=== PATIENT | male | born 1985 | race Caucasian/White ===

== ENCOUNTER 2020-08-08 11:41 | Emergency (ER) | payer OTHER, SELFPAY ==
[2020-08-08 11:57] VITALS: BP 132/86; PULSE 65; RESP 18; TEMP 36.6; O2SAT 99
--- NOTE | 2020-08-08 12:01 | ED.GENADULT ---
HPI - General Adult General Chief complaint: Wound/Laceration Stated complaint: head laceration Time Seen by Provider: 08/08/20 12:01 Source: patient Mode of arrival: ambulatory Limitations: no limitations History of Present Illness HPI narrative: 35-year-old male patient presents to the [facility] with complaints of a laceration to the head. Patient states he hit his head on the switchboard in a plane last night about 8 or 9:00 PM. Patient unaware of when his last tetanus shot was. Denies any loss of consciousness or passing out after hitting his head. Denies any lightheadedness, dizziness, vision changes, nausea, vomiting or diarrhea at this time. Patient states that they did clean the wound yesterday and put some antibiotic ointment on it which is going to come and get it checked out today. Related Data Home Medications Medication Instructions Recorded Confirmed No Home Medications 08/08/20 08/08/20 Allergies Allergy/AdvReac Type Severity Reaction Status Date / Time No Known Allergies Allergy Verified 08/08/20 12:13 Review of Systems Review of Systems: Narrative: CONSTITUTIONAL: Denies fever, chills, or sweats. EYES: Denies visual changes, redness, or discharge. ENT: Denies rhinorrhea, congestion, sore throat, or otalgia. CARDIOVASCULAR: Denies chest pain, palpitations, or edema. RESPIRATORY: Denies cough or dyspnea. GASTROINTESTINAL: Denies abdominal pain, nausea, vomiting, or diarrhea. GENITOURINARY: Denies dysuria or hematuria. SKIN: Denies rash or itching. Positive wound to head since last night MUSCULOSKELETAL: Denies back pain, joint pain, or myalgia. NEUROLOGIC: Denies headache, numbness, or weakness. PSYCHIATRIC: Denies anxiety or depression. PMFSH Comments At the time of my signature I agree with nursing past medical history, surgical, social, and family history. There is no relevant family history pertinent to the presenting complaint. Exam Narrative: Exam Narrative: GENERAL: Well-appearing, well-nourished, and in no acute distress. HEAD: Normocephalic, atraumatic. EYES: PERRLA and EOMI. ENT: Nares clear, no rhinorrhea or epistaxis. Mucous membranes moist. NECK: Supple. No lymphadenopathy CHEST: Clear to auscultation. No respiratory distress. HEART: Regular rate and rhythm. No murmur heard. Normal peripheral pulses. ABDOMEN: Soft, nontender, nondistended, normal active bowel sounds. EXTREMITIES: Normal range of motion. No edema. SKIN: Warm, dry, no rash. Patient has approximately 2 cm wound to the top of the scalp to the parietal area. The wound does not have any open gaping area but is scabbed over. No active drainage at this time. No active bleeding at this time. NEURO: Alert and oriented x4, GCS 15. Cranial nerves II through XII grossly intact. No focal neurological deficits. Normal muscle strength and tone. Normal deep tendon reflexes. Negative Babinski, normal finger to nose coordination he had normal heel to cruz glide. Speech is clear. Normal gait. Negative Romberg and no pronator drift Course Vital Signs Vital signs: Vital Signs Temperature 36.6 C 08/08/20 11:57 Pulse Rate 65 08/08/20 11:57 Respiratory Rate 18 08/08/20 11:57 Blood Pressure 132/86 08/08/20 11:57 Pulse Oximetry 99 08/08/20 11:57 Temperature 36.6 C 08/08/20 11:57 Pulse Rate 65 08/08/20 11:57 Respiratory Rate 18 08/08/20 11:57 Blood Pressure 132/86 08/08/20 11:57 Pulse Oximetry 99 08/08/20 11:57 Vital signs reviewed The patient has been informed that they may have pre-hypertension or Hypertension based on a BP reading in the department. I recommend that the patient call the primary care provider listed on their discharge instructions or a physician of their choice this week to arrange follow up for further evaluation of possible pre-hypertension or Hypertension Medical Decision Making Differential Diagnosis Differential Diagnosis: Differential diagnosis: Abscess, cellulitis, hidrade
[2020-08-08] MEDS: TETANUS,DIPHTHERIA,AC PERTUSSIS ADULT (0.5 ML) BOOSTRIX IM (12:25)
== END 2020-08-08 12:49 | disposition home or self-care (01) ==
PROVIDERS: Emergency Provider Nurse Practitioner Family
DX: S09.90XA Unspecified injury of head, initial encounter (principal); W22.8XXA Striking against or struck by other objects, initial encounter; Z23 Encounter for immunization
CPT/HCPCS: 90471; 90715; 99203; G0463

== ENCOUNTER → 2023-03-10 10:44 | Outpatient (CLI) | payer BC, SELFPAY ==
--- NOTE | ~2023-03-10 | XR_ITS ---
Cervical Spine: AP, lateral, oblique, open-mouth views. Lateral views were performed in neutral, flex ion, and extension positioning. Clinical History: Pain Findings: The normal lordotic curve is maintained. The vertebral bodies and posterior elements appea r intact. No instability seen on flexion or extension. The intervertebral disc spaces are well mainta ined. Pre-vertebral soft tissues are unremarkable. Impression: No significant abnormality is seen. Reviewed, dictated and finalized at location M. Impression: No significant abnormality is seen.
== END ==
PROVIDERS: PCP Emergency Medicine; Visit Provider Emergency Medicine
DX: M54.12 Radiculopathy, cervical region (principal)
CPT/HCPCS: 72052

== ENCOUNTER 2023-05-02 08:27 | Outpatient (CLI) | payer BC, SELFPAY ==
[2023-05-02 12:47] LABS: Basophils Percent Auto 0.5 % (0.2-1.2); Eosinophils Absolute Auto 0.1 K/mm3 (0-0.3); Eosinophils Percent Auto 1.7 % (0-4.4); Hematocrit 48.1 % (42.0-52.0); Hemoglobin 16.5 g/dL (14.0-18.0); Immature Granulocyte Absolute 0.02 K/mm3 (0.00-0.031); Immature Granulocyte Percent A 0.3 % (0-0.5); Lymphocytes Absolute Auto 1.55 K/mm3 (0.9-3.2); Lymphocytes Percent Auto 26.1 % (18.3-44.2); Mean Corpuscular HGB Conc 34.3 g/dl (32-36); Mean Corpuscular Hemoglobin 29.7 pg (26-34); Mean Corpuscular Volume 86.5 fl (80-100); Mean Platelet Volume 10.3 fl (7.4-10.4); Monocytes Absolute Auto 0.4 K/mm3 (0.1-0.6); Monocytes Percent Auto 6.2 % (2.6-8.5); Neutrophils Absolute Auto 3.9 K/mm3 (1.3-6.7); Neutrophils Percent Auto 65.2 % (45.5-73.1); Platelet Count Result 223 k/mm3 (150-375); Red Blood Count 5.56 M/mm3 (4.6-6.20); Red Cell Distribution Width 11.9 % (11.5-14.5); White Blood Count 5.9 K/mm3 (4.5-10.0)
[2023-05-02 12:48] LABS: Alanine Aminotransferase 48 U/L (6-50); Albumin Level 4.8 g/dL (3.5-5.1); Alkaline Phosphatase 59 U/L (38-126); Anion Gap 4 mmol/L (8-16); Aspartate Amino Transferase 37 U/L (17-59); Bilirubin,Total 0.9 mg/dL (0.2-1.3); Blood Urea Nitrogen 19 mg/dL (9-20); Calcium 9.4 mg/dL (8.4-10.2); Carbon Dioxide 32 mmol/L (22-30); Chloride 103 mmol/L (98-107); Cholesterol 197 mg/dL (0-200); Estimated Glomerular Filt Rate > 60; Glucose 86 mg/dL (65-110); HDL Direct 50 mg/dL; Potassium 3.8 mmol/L (3.4-5.0); Sodium 139 mmol/L (137-145); Triglycerides 80 mg/dL (<150)
[2023-05-02 12:58] LABS: LDL Cholesterol Direct 106 mg/dL
[2023-05-02 13:13] LABS: Vitamin D 25 Hydroxy 35.2 ng/mL
[2023-05-02 15:17] LABS: Hemoglobin A1C 4.7 % (<5.7)
[2023-05-05 11:48] LABS: Testosterone Total 592 ng/dL (250-1100)
== END 2023-05-02 08:28 | disposition home or self-care (01) ==
LOC: ANHGOSHLAB 08:29
PROVIDERS: PCP Emergency Medicine; Visit Provider Emergency Medicine
DX: R53.83 Other fatigue (principal); R63.5 Abnormal weight gain
CPT/HCPCS: 36415; 80053; 80061; 82306; 83036; 84403; 84443; 85025